=== PATIENT | male | born 1970 | race American Indian/Alaskan Native ===

== ENCOUNTER 2021-09-19 08:23 | Inpatient (IN) | payer SELFPAY ==
[2021-09-19] MEDS ORDERED: SODIUM CHLORIDE 0.9% 1000 ML 1,000 ML IV ONE (09:03)
[2021-09-19] MEDS ORDERED: ONDANSETRON 4 MG/2 ML INJ IV ONE (09:03)
--- NOTE | 2021-09-19 09:05 | Emergency Department Report ---
ED N/V/D HPI - General Chief complaint: Weakness Stated complaint: DEHYDRATION Time Seen by Provider: 09/19/21 08:57 Source: patient, EMS Mode of arrival: Stretcher Limitations: No Limitations - History of Present Illness Initial comments: 50-year-old male with a past medical history of hypertension presents to the hospital complaining of "dehydration". Patient states since yesterday he has had decreased p.o. intake secondary to nausea and vomiting. Today patient developed increased abdominal cramps and generalized muscle cramps. Patient denies fever, dysuria, hematemesis, hematochezia, or melena. Patient does endorse drinking beer daily but denies history of alcohol withdrawal seizures or tremors. He also reports 2 weeks ago he had a normal colonoscopy. No previous abdominal surgeries reported. Pt denies ethylene glycol/antifreeze ingestion. Last oupatient pmd labs done nov 2020 and states no hx of kidney failure. - Related Data Allergies Allergy/AdvReac Type Severity Reaction Status Date / Time No Known Allergies Allergy Verified 09/19/21 09:16 ED Review of Systems ROS: Stated complaint: DEHYDRATION Other details as noted in HPI Comment: All other systems reviewed and negative ED Physical Exam - General Limitations: No Limitations - Other Other exam information: General: No acute distress Head: Atraumatic Eyes: normal appearance ENT: Moist mucous membranes Neck: Normal appearance, no midline tenderness Chest: Clear to auscultation bilaterally CV: Regular rate and rhythm Abdomen: Soft, normal bowel sounds, nontender, nondistended, no rebound or guarding Back: Normal inspection Extremity: Normal inspection, full range of motion Neuro: Alert O x 3, no facial asymmetry, speech clear, no gross motor sensory deficit Psych: Appropriate behavior Skin: No rash ED Course Vital Signs 09/19/21 09/19/21 09/19/21 08:43 09:27 12:13 Temperature 97.6 F Pulse Rate 76 78 Respiratory 18 16 Rate Blood Pressure 106/70 114/73 [Left] O2 Sat by Pulse 98 98 98 Oximetry - Consultations Consultation #1: 09/19/21 13:44 case d/w DR cabrales. Medical Videographer will consult ED Medical Decision Making - Lab Data Result diagrams: 09/19/21 09:22 09/19/21 09:22 Lab Results 07/08/22 07/08/22 07/08/22 Range/Units 09:22 09:22 12:22 WBC 7.7 (4.5-11.0) K/mm3 RBC 4.13 (3.65-5.03) M/mm3 Hgb 12.5 (11.8-15.2) gm/dl Hct 37.3 (35.5-45.6) % MCV 90 (84-94) fl MCH 30 (28-32) pg MCHC 34 (32-34) % RDW 13.1 L (13.2-15.2) % Plt Count 247 (140-440) K/mm3 Lymph % (Auto) 11.1 L (13.4-35.0) % [place] % (Auto) 9.8 H (0.0-7.3) % Eos % (Auto) 0.0 (0.0-4.3) % Baso % (Auto) 0.1 (0.0-1.8) % Lymph # (Auto) 0.9 L (1.2-5.4) K/mm3 [place] # (Auto) 0.8 (0.0-0.8) K/mm3 Eos # (Auto) 0.0 (0.0-0.4) K/mm3 Baso # (Auto) 0.0 (0.0-0.1) K/mm3 Seg Neutrophils % 79.0 H (40.0-70.0) % Seg Neutrophils # 6.1 (1.8-7.7) K/mm3 Sodium 133 L (137-145) mmol/L Potassium 4.2 (3.6-5.0) mmol/L Chloride 92.8 L (98-107) mmol/L Carbon Dioxide 20 L (22-30) mmol/L Anion Gap 24 mmol/L BUN 64 H (9-20) mg/dL Creatinine 5.0 H (0.8-1.3) mg/dL Estimated GFR 15 ml/min BUN/Creatinine Ratio 13 % Glucose 117 H (75-100) mg/dL Calcium 9.2 (8.4-10.2) mg/dL Magnesium 2.20 (1.7-2.3) mg/dL Total Bilirubin 0.80 (0.1-1.2) mg/dL AST 19 (5-40) units/L ALT 18 (7-56) units/L Alkaline Phosphatase 99 (35-129) units/L Total Creatine Kinase 345 H (55-170) units/L Total Protein 8.1 (6.3-8.2) g/dL Albumin 4.7 (3.9-5) g/dL Albumin/Globulin Ratio 1.4 % Lipase 33 (13-60) units/L Urine Color (Yellow) Urine Turbidity (Clear) Urine pH (5.0-7.0) Ur Specific [place] (1.003-1.030) Urine Protein (Negative) mg/dL Urine Glucose (UA) (Negative) mg/dL Urine Ketones (Negative) mg/dL Urine Blood (Negative) Urine Nitrite (Negative) Ur Reducing Substances Urine Bilirubin (Negative) Urine Ictotest Urine Urobilinogen (<2.0) mg/dL Ur Leukocyte Esterase (Negative) Urine WBC (Auto) (0.0-6.0) /HPF Urine RBC (Auto) (0.0-6.0) /HPF U Epithel Cells (Auto) (0-13.0) /HPF Urine Mucus /HPF // Range/Units Unknown WBC (4.5-11.0) K/mm3 RBC (3.65-5.03) M/mm3 Hgb (11.8-15.2) gm/dl Hct (35.5-45.6) % MCV (84-94) fl MCH (28-32) pg MCHC (32-34) % RDW (13.2-15.2) % Plt Count (140-440) K/mm3 Lymph % (Auto) (13.4-35.0) % [place] % (Auto) (0.0-7.3) % Eos % (Auto) (0.0-4.3) % Baso % (Auto) (0.0-1.8) % Lymph # (Auto) (1.2-5.4) K/mm3 [place] # (Auto) (0.0-0.8) K/mm3 Eos # (Auto) (0.0-0.4) K/mm3 Baso # (Auto) (0.0-0.1) K/mm3 Seg Neutrophils % (40.0-70.0) % Seg Neutrophils # (1.8-7.7) K/mm3 Sodium (137-145) mmol/L Potassium (3.6-5.0) mmol/L Chloride (98-107) mmol/L Carbon Dioxide (22-30) mmol/L Anion Gap mmol/L BUN (9-20) mg/dL Creatinine (0.8-1.3) mg/dL Estimated GFR ml/min BUN/Creatinine Ratio % Glucose (75-100) mg/dL Calcium (8.4-10.2) mg/dL Magnesium (1.7-2.3) mg/dL Total Bilirubin (0.1-1.2) mg/dL AST (5-40) units/L ALT (7-56) units/L Alkaline Phosphatase (35-129) units/L Total Creatine Kinase (55-170) units/L Total Protein (6.3-8.2) g/dL Albumin (3.9-5) g/dL Albumin/Globulin Ratio % Lipase (13-60) units/L Urine Color Yellow (Yellow) Urine Turbidity Clear (Clear) Urine pH 5.0 (5.0-7.0) Ur Specific [place] 1.020 (1.003-1.030) Urine Protein 100 mg/dl (Negative) mg/dL Urine Glucose (UA) Negative (Negative) mg/dL Urine Ketones Trace (Negative) mg/dL Urine Blood Small A (Negative) Urine Nitrite Negative (Negative) Ur Reducing Substances Not Reportable Urine Bilirubin Negative (Negative) Urine Ictotest Not Reportable Urine Urobilinogen < 2.0 (<2.0) mg/dL Ur Leukocyte Esterase Negative (Negative) Urine WBC (Auto) 5.0 (0.0-6.0) /HPF Urine RBC (Auto) 1.0 (0.0-6.0) /HPF U Epithel Cells (Auto) < 1.0 (0-13.0) /HPF Urine Mucus Few /HPF - Medical Decision Making 50-year-old male presents to the hospital complaining of dehydration secondary to vomiting. He denies previous history of renal insufficiency. Labs revealed significant elevation in BUN and creatinine. Patient treated with IV fluids in the ED. Case discussed with rocket engine component mechanic who will consult. Hospitalist to admit Critical Care Time: No Critical care attestation.: If time is entered above; I have spent that time in minutes in the direct care of this critically ill patient, excluding procedure time. ED Disposition Clinical Impression: Acute renal failure, History of hypertension, Vomiting Disposition: 09 ADMITTED INPATIENT Is pt being admited?: Yes Condition: Stable Time of Disposition: 13:06 (DR Tate/hospitalist)
[2021-09-19 10:01] LABS: Basophils % (Auto) 0.1 % (0.0-1.8); Hematocrit 37.3 % (35.5-45.6); Hemoglobin 12.5 gm/dl (11.8-15.2); Lymphocytes # (Auto) 0.9 K/mm3 (1.2-5.4); Lymphocytes % (Auto) 11.1 % (13.4-35.0); Mean Corpuscular HGB Conc 34 % (32-34); Mean Corpuscular Volume 90 fl (84-94); Monocytes # (Auto) 0.8 K/mm3 (0.0-0.8); Monocytes % (Auto) 9.8 % (0.0-7.3); Platelet Count 247 K/mm3 (140-440); Red Blood Count 4.13 M/mm3 (3.65-5.03); Red Cell Distribution Width 13.1 % (13.2-15.2)
[2021-09-19 10:31] LABS: Albumin 4.7 g/dL (3.9-5); Calcium 9.2 mg/dL (8.4-10.2)
[2021-09-19 11:40] LABS: Mucus,Urine FEW /HPF
[2021-09-19 12:14] LABS: Bilirubin,Urine Negative (Negative); Color,Urine Yellow (Yellow)
[2021-09-19 12:15] LABS: Blood,Urine Small (Negative); Urobilinogen,Urine < 2.0 mg/dL (<2.0)
[2021-09-19] MEDS ORDERED: SODIUM CHLORIDE 0.9% 1000 ML 3,000 ML IV ONE (13:40)
[2021-09-19] MEDS ORDERED: ALBUTEROL 2.5 MG/3 ML NEBU IH PRN (14:05)
[2021-09-19] MEDS ORDERED: ACETAMINOPHEN 325 MG TAB PO PRN (14:05)
[2021-09-19] MEDS ORDERED: ONDANSETRON 4 MG/2 ML INJ IV PRN (14:05)
[2021-09-19] MEDS ORDERED: oxyCODONE /ACETAMINOPHEN 5-325MG TAB PO PRN (14:05)
[2021-09-19] MEDS ORDERED: HYDROmorphone 0.5 MG/0.5 ML INJ IV PRN (14:05)
--- NOTE | 2021-09-19 14:10 | History and Physical Report ---
History of Present Illness Chief complaint: I feel dehydrated History of present illness: 50 YO Male with HTN presents to ED for evaluation. Patient reports "I feel dehydrated". Patient states that over the past 1 day he has experienced abdominal cramping, generalized muscle cramping, diminished oral intake, nausea, and multiple episodes of vomiting. EMS notified and upon arrival the patient was found to be in distress and subsequently transported to [facility] for further care and evaluation of the aforementioned symptoms. The patient was seen and evaluated emergency department. All lab and imaging studies reviewed. The patient was found to have CALI with ATN, hyponatremia, metabolic acidosis, as well as volume depletion. Nephrology team consulted in ED. Patient treated with IV fluid resuscitation therapy and admitted to medical floor due to increased risk of worsening symptoms and for medical stabilization. Patient denies fever, chills, chest pain, palpitation, productive cough, skin rash, recent contact, or known exposure to COVID-19. No prior admission for review. No medication listed at time of admission for reconciliation. Advanced care planning conducted in ED. Past History Past Medical History: hypertension, other (See HPI) Past Surgical History: Other (Colonoscopy) Social history: single. denies: smoking, alcohol abuse, prescription drug abuse, IV drug use Family history: hypertension Medications and Allergies Allergies Allergy/AdvReac Type Severity Reaction Status Date / Time No Known Allergies Allergy Verified 09/19/21 09:16 Active Meds: Active Medications Acetaminophen (Acetaminophen 325 Mg Tab) 650 mg PO Q4H PRN PRN Reason: Pain MILD(1-3)/Fever >100.5/[place] Albuterol (Albuterol 2.5 Mg/3 Ml Nebu) 2.5 mg IH Q4HRT PRN PRN Reason: Shortness Of Breath Hydromorphone HCl (Hydromorphone 0.5 Mg/0.5 Ml Inj) 0.5 mg IV Q23H PRN PRN Reason: Pain , Severe (7-10) Sodium Chloride (Nacl 0.9% 1000 Ml) 3,000 mls @ 999 mls/hr IV BOLUS ONE Stop: 09/19/21 16:40 Sodium Chloride (Nacl 0.9% 1000 Ml) 1,000 mls @ 125 mls/hr IV DIRECT SUSAN Ondansetron HCl (Ondansetron 4 Mg/2 Ml Inj) 4 mg IV Q8H PRN PRN Reason: Nausea And Vomiting Oxycodone/Acetaminophen (Oxycodone /Acetaminophen 5-325mg Tab) 1 tab PO Q6H PRN PRN Reason: Pain, Moderate (4-6) Sodium Chloride (Sodium Chloride 0.9% 10 Ml Flush Syringe) 10 ml IV BID SUSAN Sodium Chloride (Sodium Chloride 0.9% 10 Ml Flush Syringe) 10 ml IV PRN PRN PRN Reason: LINE FLUSH Review of Systems Constitutional: no weight loss, no weight gain, no fever, no chills Ears, nose, mouth and throat: no ear pain, no ear discharge, no tinnitis, no decreased hearing, no nose pain, no nasal congestion Cardiovascular: no chest pain, no orthopnea, no syncope Respiratory: no cough, no cough with sputum Gastrointestinal: abdominal pain, nausea, vomiting, no constipation, no change in bowel habits, no BRBPR, no melena, no hematochezia Genitourinary Male: no hematuria, no flank pain, no discharge, no urinary frequency, no urinary hesitancy Rectal: no pain, no incontinence, no bleeding Musculoskeletal: no neck stiffness, no arm numbness/tingling Integumentary: no rash, no pruritis, no redness, no sores, no wounds, no jaundice Neurological: no head injury, no transient paralysis, no paralysis, no parathesias, no numbness, no seizures, no syncope Psychiatric: no anxiety, no memory loss, no change in sleep habits, no sleep disturbances, no insomnia, no change in appetite Endocrine: no cold intolerance, no heat intolerance, no polyphagia, no polyuria, no nocturia, no flushing Hematologic/Lymphatic: no easy bruising, no easy bleeding, no lymphadenopathy Allergic/Immunologic: no urticaria, no allergic rhinitis, no persistent infections, no anaphylaxis Exam - Constitutional Vitals: Temp Pulse Resp BP Pulse Ox 97.6 F 78 16 114/73 98 09/19/21 08:43 09/19/21 12:13 09/19/21 12:13 09/19/21 12:13 09/19/21 12:13 General appearance: Present: mild distress - EENT Eyes: Present: PERRL ENT: hearing intact, clear oral mucosa - Neck Neck: Present: supple, normal ROM - Respiratory Respiratory effort: normal Respiratory: bilateral: CTA - Cardiovascular Heart Sounds: Present: S1 & S2. Absent: rub, click - Extremities Extremities: pulses symmetrical, No edema Peripheral Pulses: within normal limits - Abdominal General gastrointestinal: Present: soft, non-tender, non-distended, normal bowel sounds Male genitourinary: Present: normal - Integumentary Integumentary: Present: clear, warm, dry - Musculoskeletal Musculoskeletal: gait normal, strength equal bilaterally - Psychiatric Psychiatric: appropriate mood/affect, intact judgment & insight - Neurologic Neurologic: CNII-XII intact, moves all extremities Results - Labs CBC & Chem 7: 09/19/21 09:22 09/19/21 09:22 Labs: Abnormal lab results 09/19/21 09/19/21 09/19/21 Range/Units 09:22 09:22 12:22 RDW 13.1 L (13.2-15.2) % Lymph % (Auto) 11.1 L (13.4-35.0) % [place] % (Auto) 9.8 H (0.0-7.3) % Lymph # (Auto) 0.9 L (1.2-5.4) K/mm3 Seg Neutrophils % 79.0 H (40.0-70.0) % Sodium 133 L (137-145) mmol/L Chloride 92.8 L (98-107) mmol/L Carbon Dioxide 20 L (22-30) mmol/L BUN 64 H (9-20) mg/dL Creatinine 5.0 H (0.8-1.3) mg/dL Glucose 117 H (75-100) mg/dL Total Creatine Kinase 345 H (55-170) units/L Urine Blood (Negative) 09/19/21 Range/Units Unknown RDW (13.2-15.2) % Lymph % (Auto) (13.4-35.0) % [place] % (Auto) (0.0-7.3) % Lymph # (Auto) (1.2-5.4) K/mm3 Seg Neutrophils % (40.0-70.0) % Sodium (137-145) mmol/L Chloride (98-107) mmol/L Carbon Dioxide (22-30) mmol/L BUN (9-20) mg/dL Creatinine (0.8-1.3) mg/dL Glucose (75-100) mg/dL Total Creatine Kinase (55-170) units/L Urine Blood Small A (Negative) Assessment and Plan - Patient Problems (1) Acute kidney injury (CALI) with acute tubular necrosis (ATN) Status: Acute Plan to address problem: IV fluid resuscitation therapy, BMP, repeat BMP in a.m., urine electrolytes, renal ultrasound, nephrology team consulted in ED, monitor fluid balance, avoid nephrotoxic agents. Hepatitis profile. (2) Hyponatremia syndrome Status: Acute Plan to address problem: BMP, IV fluid resuscitation therapy, repeat BMP in AM. (3) Metabolic acidosis Status: Acute Plan to address problem: IV fluid resuscitation therapy, supportive care, repeat BMP in AM. (4) Volume depletion Status: Acute Plan to address problem: IV fluid resuscitation therapy, monitor urine output every shift, repeat BMP in a.m. to monitor serum creatinine as well as GFR. (5) Hypertension Status: Acute Qualifiers: Hypertension type: primary hypertension Qualified Code(s): I10 - Essential (primary) hypertension Plan to address problem: Monitor blood pressure every shift, continue medical management. (6) DVT prophylaxis Status: Acute Plan to address problem: SCD to bilateral extremities while in bed, patient is ambulatory. (7) Advance care planning Status: Acute Plan to address problem: Disease education done, care plan discussed, diagnoses discussed, prognosis discussed, patient is full code. Patient knowledges understanding agreement with care plan, +30 minutes. (8) Preventative health care Status: Acute Plan to address problem: Patient counseled regarding outpatient follow-up with primary care physician for all age and risk factor appropriate screening test, renal diet, +30 minutes.
--- NOTE | 2021-09-19 18:00 | Ultrasound Report ---
ULTRASOUND RENAL INDICATION / CLINICAL INFORMATION: lorraine. COMPARISON: None available. FINDINGS: RIGHT KIDNEY: Length = 10.9 cm. - Echogenicity: Normal. - Cortical Thickness: Normal. - Hydronephrosis: None. - Cyst or mass: Right renal cyst measures 1 cm - Stones: None seen. LEFT KIDNEY: Length = 10.9 cm. - Echogenicity: Normal. - Cortical Thickness: Normal. - Hydronephrosis: None. - Cyst or mass: No significant abnormality. - Stones: None seen. URINARY BLADDER: No significant abnormality. FREE FLUID: None. ADDITIONAL FINDINGS: None. IMPRESSION: 1. Right renal cyst. Signer Name: Beto Coy MD Signed: 09/19/2021 5:55 PM Workstation Name: [id number]
--- NOTE | 2021-09-19 19:20 | Consultation ---
History of Present Illness - Reason for Consult Consult date: 09/19/21 acute renal failure - History of Present Illness This is a 50-year-old man with history of hypertension who presented with 1 day history of nausea, vomiting, weakness and cramping. He was noted to have acute kidney injury and other electrolyte derangements on admission and was subsequently admitted for further workup nephrology was consulted for further management. He notes drinking 2 beers daily. He denies use of antifreeze and other drugs. Patient denies any recent NSAID use or any other herbal supplement use except for potassium supplements that he started taking a few weeks ago. He denies decreased urine output, hematuria, dysuria and history of kidney stones. Past History Past Medical History: hypertension, other (See HPI) Past Surgical History: Other (Colonoscopy) Social history: single. denies: smoking, alcohol abuse, prescription drug abuse, IV drug use Family history: hypertension Medications and Allergies Allergies Allergy/AdvReac Type Severity Reaction Status Date / Time No Known Allergies Allergy Verified 09/19/21 09:16 Active Meds: Active Medications Acetaminophen (Acetaminophen 325 Mg Tab) 650 mg PO Q4H PRN PRN Reason: Pain MILD(1-3)/Fever >100.5/[place] Albuterol (Albuterol 2.5 Mg/3 Ml Nebu) 2.5 mg IH Q4HRT PRN PRN Reason: Shortness Of Breath Hydromorphone HCl (Hydromorphone 0.5 Mg/0.5 Ml Inj) 0.5 mg IV Q23H PRN PRN Reason: Pain , Severe (7-10) Sodium Chloride (Nacl 0.9% 1000 Ml) 1,000 mls @ 125 mls/hr IV DIRECT SUSAN Ondansetron HCl (Ondansetron 4 Mg/2 Ml Inj) 4 mg IV Q8H PRN PRN Reason: Nausea And Vomiting Oxycodone/Acetaminophen (Oxycodone /Acetaminophen 5-325mg Tab) 1 tab PO Q6H PRN PRN Reason: Pain, Moderate (4-6) Sodium Chloride (Sodium Chloride 0.9% 10 Ml Flush Syringe) 10 ml IV BID SUSAN Stop: 09/26/21 21:59 Sodium Chloride (Sodium Chloride 0.9% 10 Ml Flush Syringe) 10 ml IV PRN PRN PRN Reason: LINE FLUSH Review of Systems All systems: negative Constitutional: weakness Gastrointestinal: abdominal pain, nausea, vomiting Exam - Vital Signs Vital signs: Vital Signs Temp Pulse Resp BP Pulse Ox 97.6 F 76 18 106/70 98 09/19/21 08:43 09/19/21 08:43 09/19/21 08:43 09/19/21 08:43 09/19/21 08:43 - Physical Exam Narrative exam: General: No acute distress HEENT: Oral mucosa moist Neck: Supple, no JVD Chest: Clear to auscultation bilaterally Heart: RRR, S1 and S2, no pericardial rub Abdomen: Soft, nontender, no renal bruit Extremity: No peripheral cyanosis, edema Neurological: Alert, awake, no asterixis Dermatology: No skin rash Psych: No agitation Musculoskeletal: No joint effusion Results - Lab Results 09/19/21 09:22 09/19/21 09:22 Most recent lab results Calcium 9.2 mg/dL (8.4-10.2) 09/19/21 09:22 Magnesium 2.20 mg/dL (1.7-2.3) 09/19/21 09:22 Assessment and Plan Acute kidney injury, cr 5 Hyponatremia, mild Acidosis Hypotension Right kidney cyst Nausea/vomiting - esophagitis? Ultrasound reviewed, negative for acute pathology/obstruction Continue IVF Keep MAP > 65 No immediate indication for dialysis Strict I/O Renally dose medications Avoid nephrotoxins Renal diet
[2021-09-19] MEDS: SODIUM CHLORIDE 0.9% 1000 ML 1,000 ML IV SCH (21:41)
[2021-09-20] MEDS: SODIUM CHLORIDE 0.9% 1000 ML 1,000 ML IV SCH (04:38)
[2021-09-20 07:17] LABS: Calcium 8.5 mg/dL (8.4-10.2)
--- NOTE | 2021-09-20 14:57 | Discharge Summary ---
Providers - Providers Date of Admission: 09/19/21 14:05 Date of discharge: 09/20/21 Attending physician: CALVIN LOVELACE 09/19/21 13:04 Consult to Physician [CONS] Urgent Comment: Consulting Provider: ELENI BARBER Physician Instructions: Reason For Exam: acute renal failure Hospitalization Condition: Stable Hospital course: This is a 50-year-old man with history of hypertension who presented with 1 day history of nausea, vomiting, weakness and cramping. He was noted to have acute kidney injury and other electrolyte derangements on admission and was subsequ ently admitted for further workup. Nephrology was consulted for further management. Final Discharge Diagnosis (Prints w/discharge instructions): -- CALI, vasomotor nephropathy vs med induced. --HTN Time spent for discharge: 34 minutes Core Measure Documentation - Palliative Care Palliative Care/ Comfort Measures: Not Applicable - Core Measures Any of the following diagnoses?: none Exam - Constitutional Vitals: Temp Pulse Resp BP Pulse Ox 97.8 F 53 L 16 108/65 98 09/20/21 11:33 09/20/21 11:33 09/20/21 11:33 09/20/21 11:33 09/20/21 11:33 General appearance: Present: no acute distress, well-nourished - EENT Eyes: Present: PERRL ENT: hearing intact, clear oral mucosa - Neck Neck: Present: supple, normal ROM - Respiratory Respiratory effort: normal Respiratory: bilateral: CTA - Cardiovascular Heart Sounds: Present: S1 & S2. Absent: rub, click - Extremities Extremities: pulses symmetrical, No edema Peripheral Pulses: within normal limits - Abdominal General gastrointestinal: Present: soft, non-tender, non-distended, normal bowel sounds - Integumentary Integumentary: Present: clear, warm, dry - Musculoskeletal Musculoskeletal: gait normal, strength equal bilaterally - Psychiatric Psychiatric: appropriate mood/affect, intact judgment & insight - Neurologic Neurologic: CNII-XII intact, moves all extremities Plan Activity: advance as tolerated Weight Bearing Status: Weight Bear as Tolerated Diet: low fat, low salt Additional Instructions: Repeat BMP in 1 week. Hold blood pressure medications for now until gets reevaluated by PCP Follow up with: MD UGO [Other] - 7 Days
--- NOTE | 2021-09-20 17:27 | Progress Note ---
Assessment and Plan Acute kidney injury, cr 5-->1.6 Hyponatremia, mild Acidosis Hypotension Right kidney cyst Nausea/vomiting - esophagitis? Ultrasound reviewed, negative for acute pathology/obstruction S/p IVF, encouraged PO hydration Keep MAP > 65 Strict I/O Renally dose medications Avoid nephrotoxins Renal diet Will need close outpatient f/u upon d/c Subjective Date of service: 09/20/21 Principal diagnosis: CALI Interval history: Sitting up in bed. Feels much better this morning. Notes improve urine output. Objective - Exam Narrative Exam: General: No acute distress HEENT: Oral mucosa moist Neck: Supple, no JVD Chest: Clear to auscultation bilaterally Heart: RRR, S1 and S2, no pericardial rub Abdomen: Soft, nontender, no renal bruit Extremity: No peripheral cyanosis, edema Neurological: Alert, awake, no asterixis Dermatology: No skin rash Psych: No agitation Musculoskeletal: No joint effusion - Vital Signs Vital signs: Vital Signs - 12hr 09/20/21 09/20/21 09:00 11:33 Temperature 97.8 F Pulse Rate 53 L Respiratory 16 Rate Blood Pressure 108/65 O2 Sat by Pulse 97 98 Oximetry - Lab 09/19/21 09:22 09/20/21 05:49 Most recent lab results Calcium 8.5 mg/dL (8.4-10.2) 09/20/21 05:49 Magnesium 2.20 mg/dL (1.7-2.3) 09/19/21 09:22 Medications & Allergies - Medications Allergies/Adverse Reactions: Allergies No Known Allergies Allergy (Verified 09/19/21 09:16) Active Medications: Generic Name Dose Route Start Last Admin Trade Name Freq PRN Reason Stop Dose Admin Acetaminophen 650 mg 09/19/21 14:05 Acetaminophen 325 Mg Tab PO Q4H PRN Pain MILD(1-3)/Fever >100.5/[place] Albuterol 2.5 mg 09/19/21 14:05 Albuterol 2.5 Mg/3 Ml Nebu IH Q4HRT PRN Shortness Of Breath Hydromorphone HCl 0.5 mg 09/19/21 14:05 Hydromorphone 0.5 Mg/0.5 Ml Inj IV Q23H PRN Pain , Severe (7-10) Sodium Chloride 1,000 mls @ 125 mls/hr 09/19/21 14:15 09/20/21 04:38 Nacl 0.9% 1000 Ml IV 125 mls/hr DIRECT SUSAN Administration Ondansetron HCl 4 mg 09/19/21 14:05 Ondansetron 4 Mg/2 Ml Inj IV Q8H PRN Nausea And Vomiting Oxycodone/Acetaminophen 1 tab 09/19/21 14:05 Oxycodone /Acetaminophen 5-325mg Tab PO Q6H PRN Pain, Moderate (4-6) Sodium Chloride 10 ml 09/19/21 22:00 09/20/21 15:13 Sodium Chloride 0.9% 10 Ml Flush Syringe IV 09/26/21 21:59 10 ml BID SUSAN Administration Sodium Chloride 10 ml 09/19/21 14:05 Sodium Chloride 0.9% 10 Ml Flush Syringe IV PRN PRN LINE FLUSH
[2021-09-20 18:23] VITALS: BP 113/57
[2021-09-20 18:45] LABS: Creatinine,Urine 85.6 mg/dL (0.1-20.0)
== END 2021-09-20 19:00 | disposition home or self-care (01) | DRG 683 ==
LOC: ED 08:23 → 3A 14:05
PROVIDERS: ADMIT Internal Medicine; ATTEND Internal Medicine
DX: N17.0 Acute kidney failure with tubular necrosis (principal); E87.1 Hypo-osmolality and hyponatremia; E87.2 Acidosis; E86.9 Volume depletion, unspecified; I10 Essential (primary) hypertension; N28.1 Cyst of kidney, acquired; I95.9 Hypotension, unspecified; Z82.49 Family history of ischemic heart disease and other diseases of the circulatory system
CPT/HCPCS: 36415; 76770; 80048; 80053; 81001; 82550; 82570; 83690; 83735; 84300; 85025; G0378; J2405; J7030